=== PATIENT | female | born 1965 | race Two or more races ===

== ENCOUNTER 2024-03-08 14:30 | Inpatient (IN) | payer MEDICARE, MEDICAID ==
[~2024-03-08] VITALS: Ht 157.5 cm; Wt 108.5 kg
[~2024-03-08 14:30] MED LIST: AMLO1TAB22 PO; B-CO-5 PO; CARV12.544 PO; CLON0.1T PO; DICL1GEL59 TOP; FERR1TAB17 PO; GABA-1308 PO; HYDR-4072 PO; ICOS1CAP3 PO; INSU100I61 SC; LIDO1PAD55 TOP; METO5TAB5 PO; PANT40T PO
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
[2024-03-08] MEDS: SODIUM CHLORIDE 0.9% 1,000 ML IV ONE (15:30)
--- NOTE | 2024-03-08 15:56 | DVH ---
XY CHEST TWO VIEWS ROUTINE CLINICAL HISTORY: chf COMPARISON: None TECHNIQUE: Frontal and lateral view of the chest was obtained FINDINGS: Lines and Tubes: None Lungs: No focal consolidation. Left basilar atelectasis. Pleura: No effusion. No pneumothorax. Cardiomediastinal contours: Unremarkable Bones: No acute osseous abnormality. IMPRESSION: 1. Left basilar atelectasis, otherwise, no radiographic evidence of acute cardiopulmonary disease. HS:Y
[2024-03-08 16:31] VITALS: PULSE 80; RESP 20; O2SAT 95
[2024-03-08 16:34] LABS: Basophils # (auto) 0.1 10 ^3/uL (0-0.2); Basophils % (auto) 0.7 % (0.0-2.0); Eosinophils # (auto) 0.4 10 ^3/uL (0-0.8); Eosinophils % (auto) 3.4 % (0.0-7.0); Hemoglobin 11.9 g/dL (12.2-16.2); Lymphocytes % (auto) 18.2 % (10.0-50.0); Mean Corpuscular Volume 94.3 fL (80.0-100.0); Monocytes # (auto) 0.8 10 ^3/uL (0-1.3); Monocytes % (auto) 7.2 % (0.0-12.0); Neutrophils # (auto) 7.6 10 ^3/uL (1.6-8.6); Neutrophils % (auto) 70.5 % (37.0-80.0); Platelet Count (auto) 219 10^3/uL (140-450); Red Blood Cells 3.61 10^6/uL (4.0-5.20); Red Cell Distribution Width 14.4 % (11.8-14.3); White Blood Cell 10.8 10^3/uL (4.4-10.8)
[2024-03-08 16:56] LABS: Alanine Aminotransferase 13 U/L (7-40); Albumin 4.3 g/dL (3.2-4.8); Alkaline Phosphatase 142 U/L (46-116); Anion Gap 11 (5-15); Aspartate Aminotransferase 14 U/L (13-40); BUN/Creatinine Ratio 6.5 (10.0-20.0); Blood Urea Nitrogen 55 mg/dL (9-23); Calcium 9.8 mg/dL (8.7-10.4); Carbon Dioxide 29 mmol/L (20-31); Chloride 98 mmol/L (98-107); Glucose 159 mg/dL (74-106); Magnesium 2.1 mg/dL (1.6-2.6); Potassium 3.6 mmol/L (3.5-5.1); Sodium 138 mmol/L (136-145)
[2024-03-08 16:57] LABS: Bilirubin, Total 0.2 mg/dL (0.2-1.0)
[2024-03-08 16:59] LABS: INR 1.09 (0.9-1.15); Partial Thromboplastin Time 26.5 SEC (24.5-34.5); Prothrombin Time 11.5 sec (9.3-11.8)
[2024-03-08] MEDS: SODIUM CHLORIDE 0.9% 1,000 ML IV SCH (19:00)
[2024-03-08] MEDS ORDERED: DEXTROSE (50%) 50ML SYRG IV PRN (19:00)
[2024-03-08] MEDS ORDERED: ACETAMINOPHEN 325 MG TAB PO PRN (19:00)
[2024-03-08] MEDS ORDERED: cloNIDine HCL 0.1 MG TAB PO PRN (19:00)
[2024-03-08 19:27] VITALS: BP 148/61; PULSE 85; RESP 18; TEMP 98.7; O2SAT 100
--- NOTE | 2024-03-08 20:08 | DVHHP2 ---
History of Present Illness Reason for Visit: Acute respiratory distress History of Present Illness The patient is a 58-year-old female with past medical history of end-stage renal disease on peritoneal dialysis, diabetes mellitus, and thyroid disease who presented to [facility] ED with complaint of shortness of breaths. Patient reports symptoms progressively get worse with nonproductive cough, malaise, fatigue, getting worse that prompted this visit. Patient also reported she experience stomach upset whenever she eats, states will bring dialysis mention from home. Patient was seen and evaluated in the ED, laboratory data shows WBC 10.8, platelets 219, sodium 138, potassium 3.6, BUN 55, creatinine 8.50, glucose 159, BNP 63.99, troponin eight, TSH 1.16, D-dimer 0.69. Chest x-ray revealing left bibasilar atelectasis, otherwise no radiographic evidence of acute cardiopulmonary disease. Please see medication orders section in the computer. On my assessment, patient denied chest pain, no headache, no dizziness, no shortness of breath, no nausea, no vomiting, no fever, no chills. Patient was admitted for further evaluation and medical management. Past Medical History DM, Thyroid, ESRD on peritoneal dialysis Past Surgical History Dialysis access Family History Reviewed, noncontributory to the management of this case. Past Social History The patient lives at home, denies smoking, alcohol or illicit drugs abuse. Review of Systems Constitutional: Yes: Weakness, Malaise, Other (Fatigue); No: Fever, Chills, Sweats Eyes: No: Pain, Vision change, Conjunctivae inflammation, Eyelid inflammation, Other, Redness ENT: No: Ear pain, Ear discharge, Nose pain, Nose discharge, Nose congestion, Mouth pain, Mouth swelling, Throat pain, Throat swelling, Other Respiratory: Cough, Shortness of breath; No: Dry, SOB with excertion, Wheezing, Hemoptysis, Pleuritic Pain, Sputum, Wheezing, Other Cardiovascular: No: Chest Pain, Palpitations, Orthopnea, Paroxysmal Noc. Dyspnea, Edema, Lt Headedness, Other Gastrointestinal: No: Nausea, Vomiting, Abdominal Pain, Diarrhea, Constipation, Melena, Hematochezia, Other Genitourinary: No Dysuria, No Frequency, No Incontinence, No Hematuria, No Retention; Other (Peritoneal dialysis) Musculoskeletal: No: other, neck pain, shoulder pain, arm pain, back pain, hand pain, leg pain, foot pain Skin: No: Rash, Lesions, Jaundice, Bruising, Other Neurological: No: Weakness, Numbness, Incoordination, Change in speech, Confusion, Seizures, Other Allergies: Coded Allergies: NO KNOWN ALLERGIES (Unverified , 03/08/24) Medications Current Medications Medications Dose Ordered Sig/Miguel A Route Start Time Stop Time Status Last Admin Dose Admin Aspirin 81 mg DAILY PO 03/09/24 10:00 Clonidine HCl 0.1 mg Q4HP PRN PO 03/08/24 19:00 Carvedilol 12.5 mg Q12HR PO 03/08/24 22:00 Levothyroxine Sodium 50 mcg QAM@0600 PO 03/09/24 06:00 Albuterol 2.5 mg Q4HPRN PRN NEB 03/08/24 19:00 Diagnostic Test (Pha) 1 strip ACHS 03/08/24 22:00 Insulin Human Regular ACHS SC 03/08/24 22:00 Dextrose 50 ml UD PRN IV 03/08/24 19:00 Sodium Chloride 1,000 ml @ 60 mls/hr [id number] IV 03/08/24 19:00 Acetaminophen/ Hydrocodone Bitart 1 tab Q4HP PRN PO 03/08/24 19:00 Ondansetron HCl 4 mg Q4HP PRN IV 03/08/24 19:00 Docusate Sodium 100 mg BIDPRN PRN PO 03/08/24 19:00 Acetaminophen 650 mg Q6HP PRN PO 03/08/24 19:00 Exam Vital Signs Vital Signs Date Time Temp Pulse Resp B/P (MAP) Pulse Ox O2 Delivery O2 Flow Rate FiO2 03/08/24 19:27 100 Room Air 03/08/24 19:27 98.7 85 18 148/61 0.0 21 98.7 General Appearance: Alert, Oriented X3, Cooperative, No acute distress HEENT: Atraumatic, PERRLA, EOMI, Mucous membr. moist/pink Respiratory: Clear to auscultation, Normal air movement Cardiovascular: Regular rate, Normal S1, Normal S2, No murmurs Abdominal: Normal bowel sounds, Soft, No tenderness, No hepatospenomegaly, No masses Extremities: No clubbing, No cyanosis, No edema, Normal pulses, No tenderness/swelling Skin: No rashes, No breakdown, No significant lesion Neuro: Normal speech, Normal tone, Sensation intact, Cranial nerves 3-12 NL, Reflexes 2+ Psych/Mental Status: Mental status NL, Mood NL Labs/Xrays Labs Test 03/08/24 16:10 Range/Units White Blood Count 10.8 4.4-10.8 10^3/uL Red Blood Count 3.61 L 4.0-5.20 10^6/uL Hemoglobin 11.9 L 12.2-16.2 g/dL Hematocrit 34.0 L 36.0-46.0 % Mean Corpuscular Volume 94.3 80.0-100.0 fL Mean Corpuscular Hemoglobin 33.0 H 28.0-32.0 pg Mean Corpuscular Hemoglobin Concent 35.0 32.0-36.0 g/dL Red Cell Distribution Width 14.4 H 11.8-14.3 % Platelet Count 219 140-450 10^3/uL Mean Platelet Volume 8.7 6.9-10.8 fL Neutrophils (%) (Auto) 70.5 37.0-80.0 % Lymphocytes (%) (Auto) 18.2 10.0-50.0 % Monocytes (%) (Auto) 7.2 0.0-12.0 % Eosinophils (%) (Auto) 3.4 0.0-7.0 % Basophils (%) (Auto) 0.7 0.0-2.0 % Neutrophils # (Auto) 7.6 1.6-8.6 10 ^3/uL Lymphocytes # (Auto) 2.0 0.4-5.4 10 ^3/uL Monocytes # (Auto) 0.8 0-1.3 10 ^3/uL Eosinophils # (Auto) 0.4 0-0.8 10 ^3/uL Basophils # (Auto) 0.1 0-0.2 10 ^3/uL Nucleated Red Blood Cells 0.0 % Prothrombin Time 11.5 9.3-11.8 sec Prothrombin Time INR 1.09 0.9-1.15 Activated Partial Thromboplast Time 26.5 24.5-34.5 SEC D-Dimer, Quantitative 0.69 H 0.0-0.49 mg/L FEU Sodium Level 138 136-145 mmol/L Potassium Level 3.6 3.5-5.1 mmol/L Chloride Level 98 98-107 mmol/L Carbon Dioxide Level 29 20-31 mmol/L Anion Gap 11 5-15 Blood Urea Nitrogen 55 H 9-23 mg/dL Creatinine 8.50 H 0.550-1.02 mg/dL Glomerular Filtration Rate Calc 5 >90 mL/min BUN/Creatinine Ratio 6.5 L 10.0-20.0 Serum Glucose 159 H 74-106 mg/dL Calcium Level 9.8 8.7-10.4 mg/dL Magnesium Level 2.1 1.6-2.6 mg/dL Total Bilirubin 0.2 0.2-1.0 mg/dL Aspartate Amino Transferase (AST) 14 13-40 U/L Alanine Aminotransferase (ALT) 13 7-40 U/L Alkaline Phosphatase 142 H 46-116 U/L Troponin I High Sensitivity 8 </=34 ng/L B-Type Natriuretic Peptide 63.99 0-100 pg/mL Total Protein 8.0 5.7-8.2 g/dL Albumin 4.3 3.2-4.8 g/dL Thyroid Stimulating Hormone (TSH) 1.16 0.55-4.78 uIU/mL PATIENT: ALEX YOU ACCT: [id number] UNIT: [id number] : 1965 LOC: ER ROOM / BED: / AGE / SEX: 58 / F ADM STATUS: REG ER SERVICE [id number] ORDERING PHYSICIAN: MARAH FORRESTER MD PROCEDURE(s): CXR2 - CHEST TWO VIEWS ROUTINE REASON: chf ORDER NUMBER(s): [id number], ACCESSION NUMBER(s): [id number] XY CHEST TWO VIEWS ROUTINE CLINICAL HISTORY: chf COMPARISON: None TECHNIQUE: Frontal and lateral view of the chest was obtained FINDINGS: Lines and Tubes: None Lungs: No focal consolidation. Left basilar atelectasis. Pleura: No effusion. No pneumothorax. Cardiomediastinal contours: Unremarkable Bones: No acute osseous abnormality. IMPRESSION: 1. Left basilar atelectasis, otherwise, no radiographic evidence of acute cardiopulmonary disease. Assessment/Plan Assessment/Plan Acute respiratory distress Elevated D-dimer Generalized weakness Diabetes mellitus with hyperglycemia End-stage renal disease on peritoneal dialysis Plan 1. Admit to telemetry unit 2. Breathing treatment 3. Pain control management 4. Management of fluids and electrolytes 5. Consultation for Nephrology 6. Diagnostic tests chest x-ray 7. DVT prophylaxis-on aspirin 8. Repeat labs CBC, CMP in a.m. 9. Continue with current medical management 10. Treatment plan discussed with patient and RN. Patient verbalized understanding. Plan discussed with: Patient, Other (RN) My Orders Orders - SUJEY TREJO DNP Procedure Category Date Status Time Consistent DIET 03/09/24 Transmitted Carb(Ccho)Diabetes Breakfast Aspirin Tablet PHA 03/09/24 In Process 10:00 Clonidine Hcl Tablet PHA 03/08/24 In Process (Catapres Tablet) 19:00 Carvedilol Tablet PHA 03/08/24 In Process (Coreg Tablet) 22:00 Levothyroxine Tablet PHA 03/09/24 In Process (Synthroid Tablet) 06:00 Nm Vq Scan NM 03/08/24 Logged 19:00 Albuterol Medneb PHA 03/08/24 In Process (Ventolin Medneb) 19:00 Glucose Blood PHA 03/08/24 In Process (Accu-Chek Comfort 22:00 Insulin R (Human) PHA 03/08/24 In Process (Insulin R) 22:00 Dextrose 50% Syringe PHA 03/08/24 In Process 19:00 Allergies JEUSS 03/08/24 In Process 19:00 Code Status CODE 03/08/24 Transmitted 19:00 Sodium Chloride 0.9% PHA 03/08/24 In Process 19:00 Oxygen Per Hour RT 03/08/24 Transmitted 19:00 Hydrocodone-Acet PHA 03/08/24 In Process 5/325mg Tab ([place] 19:00 Ondansetron Hcl PHA 03/08/24 In Process (Zofran) 19:00 Docusate Sodium PHA 03/08/24 In Process Capsule (Colace 19:00 Complete Blood Count LAB 03/09/24 Verified 04:00 Comprehensive LAB 03/09/24 Verified Metabolic Panel 04:00 Condition: Serious JESUS 03/08/24 In Process 19:00 Acetaminophen Tablet PHA 03/08/24 In Process (Tylenol Tablet) 19:00 Bedrest With Bathroom JESUS 03/08/24 In Process Privileg 19:00 Sequential JESUS 03/08/24 In Process Compression Device *[facility]. [facility] CONS 03/08/24 Transmitted -[place] 20:06 Admit ADMIT 03/08/24 Transmitted 20:06 Nitroglycerin PHA 03/08/24 Transmitted Sublingual (Ntrostat 20:15 Morphine Sulfate PHA 03/08/24 Verified Injection 20:15 Notify Of Changes [facility] 03/08/24 Verified From Base 20:06 Canal Superintendent For [facility] 03/08/24 Verified 24 Hours 20:06 Emergency Dysrhythmia [facility] 03/08/24 Verified Protocol 20:06 Rhythm Strips Once [facility] 03/08/24 Verified Every Shift 20:06 Oxygen By Nasal RT 03/08/24 Verified Cannula 20:06 Famotidine Injection [facility] 03/08/24 Verified (Pepcid Injection) 22:00 Problem List: (1) Acute respiratory distress (2) Elevated d-dimer (3) Generalized weakness (4) Diabetes mellitus with hyperglycemia (5) End-stage renal disease on peritoneal dialysis Date of Service: Mar 08, 2024 Billing Provider: SUJEY TREJO DNP Common Visit Codes: [id number] INP/OBS CARE (HIGH) SUJEY TREJO DNP Mar 08, 2024 20:08
[2024-03-08] MEDS ORDERED: MORPHINE SULFATE INJ 2 MG/ml SYRG IV PRN (20:15)
[2024-03-08] MEDS ORDERED: NITROGLYCERIN 0.4 MG SL TAB SL PRN (20:15)
[2024-03-08] MEDS: CARVEDILOL 12.5 MG TAB PO SCH (22:10)
[2024-03-08] MEDS: InsuLIN REG 1unit/0.01ml Soln (100units/ml) SC SCH (22:11)
[2024-03-08] MEDS: ACCU-CHEK COMFORT CURVE STRIP VI SCH (22:12)
[2024-03-08] MEDS: FAMOTIDINE (10MG/ML) 2ML VL IV SCH (22:25)
[2024-03-08 23:46] VITALS: BP 114/61; PULSE 75; RESP 20; TEMP 97.8; O2SAT 96
[2024-03-09] VITALS (13 sets, daily range): BP systolic 135–161; BP diastolic 49–66; PULSE 73–87; RESP 16–20; TEMP 97.3–98.1; O2SAT 91–100
[2024-03-09] MEDS ORDERED: CLOP75TA70 PO (02:05)
[2024-03-09] MEDS ORDERED: PANT1INJ3 IV (02:05)
[2024-03-09] MEDS ORDERED: LEVO25TA6 PO (02:05)
[2024-03-09] MEDS ORDERED: QUET400T13 PO (02:05)
[2024-03-09] MEDS ORDERED: FURO40TA4 PO (02:05)
[2024-03-09] MEDS ORDERED: PANT40TA2 PO (02:05)
[2024-03-09] MEDS ORDERED: DOCU-111 PO (02:05)
[2024-03-09] MEDS ORDERED: ATOR20TA50 PO (02:05)
[2024-03-09] MEDS ORDERED: NIFE90TA75 PO (02:05)
[2024-03-09] MEDS ORDERED: INSUINJ37 SC (02:05)
[2024-03-09] MEDS ORDERED: INSU100I28 IJ (02:05)
[2024-03-09] MEDS ORDERED: CALC0.25 PO (02:05)
[2024-03-09] MEDS ORDERED: LISI20TA56 PO (02:05)
[2024-03-09] MEDS: HYDROcodone-ACET 5/325MG TAB PO PRN (04:00)
[2024-03-09] MEDS: LEVOTHYROXINE SODIUM 50 MCG TAB PO SCH (05:13)
[2024-03-09 07:12] LABS: Basophils # (auto) 0 10 ^3/uL (0-0.2); Basophils % (auto) 0.3 % (0.0-2.0); Eosinophils # (auto) 0.4 10 ^3/uL (0-0.8); Eosinophils % (auto) 3.5 % (0.0-7.0); Hemoglobin 11.1 g/dL (12.2-16.2); Lymphocytes # (auto) 1.9 10 ^3/uL (0.4-5.4); Mean Corpuscular Hemoglobin 31.2 pg (28.0-32.0); Mean Corpuscular Hgb Conc. 32.7 g/dL (32.0-36.0); Mean Corpuscular Volume 95.3 fL (80.0-100.0); Monocytes # (auto) 0.9 10 ^3/uL (0-1.3); Monocytes % (auto) 7.6 % (0.0-12.0); Neutrophils # (auto) 8.1 10 ^3/uL (1.6-8.6); Neutrophils % (auto) 71.6 % (37.0-80.0); Platelet Count (auto) 218 10^3/uL (140-450); Red Blood Cells 3.57 10^6/uL (4.0-5.20); Red Cell Distribution Width 14.8 % (11.8-14.3); White Blood Cell 11.3 10^3/uL (4.4-10.8)
[2024-03-09 07:29] LABS: Alanine Aminotransferase 11 U/L (7-40); Alkaline Phosphatase 142 U/L (46-116); Anion Gap 15 (5-15); Aspartate Aminotransferase 13 U/L (13-40); BUN/Creatinine Ratio 6.6 (10.0-20.0); Blood Urea Nitrogen 53 mg/dL (9-23); Calcium 9.6 mg/dL (8.7-10.4); Carbon Dioxide 25 mmol/L (20-31); Chloride 98 mmol/L (98-107); Glucose 305 mg/dL (74-106); Potassium 3.5 mmol/L (3.5-5.1); Sodium 138 mmol/L (136-145)
[2024-03-09 07:30] LABS: Bilirubin, Total 0.2 mg/dL (0.2-1.0); Total Protein 7.5 g/dL (5.7-8.2)
[2024-03-09] MEDS: ONDANSETRON HCL 4 MG/2 ML VIAL IV PRN (07:34)
[2024-03-09] MEDS: ASPirin 81 mg TAB PO SCH (09:22)
[2024-03-09] MEDS: ALBUTEROL SULF 2.5 MG/0.5ML(0.5%) NEB SOLN NEB PRN (12:16)
[2024-03-09 12:32] LABS: Urine Bacteria FEW /hpf (None Seen); Urine Blood Negative /uL (Negative); Urine Clarity Turbid (Clear); Urine Color Yellow (Yellow); Urine Hyaline Cast FEW /lpf (0 - 2); Urine Protein, UAD 1+ (Negative); Urine Specific Gravity 1.019 (1.001-1.035); Urine Urobilinogen Normal (Negative); Urine WBC 4 /hpf (0 - 5)
--- NOTE | 2024-03-09 13:18 | ECG ---
[facility] Test Date: 2024-03-08 Test Time: 17:17:26 Pat Name: ALEX YOU Department: ED Room: 0282T Gender: F Bookkeepers Supervisor: ALTHEA : 1965 Requested By: MARAH FORRESTER Order Number: [id number] Reading MD: Serafin Ghosh Measurements Intervals [place] Rate: 84 P: 54 HI: 185 QRS: -20 QRSD: 109 T: 27 QT: 388 QTc: 459 Interpretive Statements Sinus rhythm Borderline left axis deviation Low voltage, precordial leads Abnormal R-wave progression, late transition Electronically Signed On 03-11-2024 11:17:43 PST by Serafin Ghosh Please click the below link to view image of tracing.
--- NOTE | 2024-03-09 14:13 | DVH ---
EXAM: US BILAT LOWER DVT Clinical History: rule out DVT Comparison: None Technique: Duplex Doppler evaluation of the deep venous systems of both lower extremities from the common femora l veins to the popliteal veins including color Doppler and spectral/pulsed waveform analysis was perf ormed. Findings: No visible intraluminal venous thrombus. No evidence of incompressibility or abnormal color or spectr al Doppler flow visualized in the deep bilateral lower extremity veins. Proximal greater saphenous ve ins are grossly unremarkable. Impression: 1. No sonographic evidence of deep venous thrombosis throughout the bilateral lower extremities from the popliteal veins to the common femoral veins.
[2024-03-09 14:25] LABS: Erythrocyte Sedimentation Rate 96 mm/hr (0-20)
[2024-03-09 15:05] LABS: Rapid Influenza A Negative (Negative); Rapid Influenza B Negative (Negative)
[2024-03-09 15:06] LABS: COVID19 ANTIGEN SOFIA FIA NEGATIVE (NEGATIVE)
--- NOTE | 2024-03-09 16:01 | DVHPN2 ---
Subjective Patient continues to report having generalized weakness. Reviewed: Care Plan, H&P, Labs, Medications Changes from previous H/P or p: No Changes General: Per HPI Eyes: No Pain, No Vision change, No Conjunctivae inflammation, No Eyelid inflammation, No Other, No Redness ENT: No Ear pain, No Ear discharge, No Nose pain, No Nose discharge, No Nose congestion, No Mouth pain, No Mouth swelling, No Throat pain, No Throat swelling, No Other Cardiovascular: No Chest Pain, No Palpitations, No Orthopnea, No Paroxysmal Noc. Dyspnea, No Edema, No Lt Headedness, No Other Respiratory: Cough; No Dry; Shortness of breath; No SOB with excertion, No Wheezing, No Hemoptysis, No Pleuritic Pain, No Sputum, No Other Gastrointestinal: No Nausea, No Vomiting, No Abdominal Pain, No Diarrhea, No Constipation, No Melena, No Hematochezia, No Other Genitourinary: No Dysuria, No Frequency, No Incontinence, No Hematuria, No Retention; Other (Peritoneal dialysis) Musculoskeletal: No other, No neck pain, No shoulder pain, No arm pain, No back pain, No hand pain, No leg pain, No foot pain Skin: No Rash, No Lesions, No Jaundice, No Bruising, No Other Objective Vitals Vital Signs Date Time Temp Pulse Resp B/P (MAP) Pulse Ox O2 Delivery O2 Flow Rate FiO2 03/09/24 13:00 97.3 81 20 152/66 (94) 97 97.3 03/09/24 12:17 Room Air* 0 21 Intake/Output Intake and Output 03/09/24 07:00 Intake Total 0 ml Balance 0 ml Intake Oral 0 ml # Voids 1 General Appearance: Alert, Oriented X3, Cooperative, No acute distress HEENT: Atraumatic, PERRLA Lungs: Clear to auscultation, Normal air movement Cardiovascular: Normal S1, Normal S2 Abdomen: Normal bowel sounds, Soft Musculoskeletal: Normal sensory function, Normal motor function Extremities: No clubbing, No cyanosis Neuro: Normal gait, Normal speech Psych/Mental Status: Mental status NL, Mood NL Medications Current Medications Medications Dose Ordered Sig/Miguel A Route Start Time Stop Time Status Last Admin Dose Admin Aspirin 81 mg DAILY PO 03/09/24 10:00 03/09/24 09:22 81 MG Clonidine HCl 0.1 mg Q4HP PRN PO 03/08/24 19:00 Carvedilol 12.5 mg Q12HR PO 03/08/24 22:00 03/09/24 09:22 12.5 MG Levothyroxine Sodium 50 mcg QAM@0600 PO 03/09/24 06:00 03/09/24 05:13 50 MCG Albuterol 2.5 mg Q4HPRN PRN NEB 03/08/24 19:00 03/09/24 12:16 2.5 MG Diagnostic Test (Pha) 1 strip ACHS 03/08/24 22:00 03/09/24 10:59 1 STRIP Insulin Human Regular ACHS SC 03/08/24 22:00 03/09/24 11:57 10 UNITS Dextrose 50 ml UD PRN IV 03/08/24 19:00 Sodium Chloride 1,000 ml @ 60 mls/hr [id number] IV 03/08/24 19:00 Acetaminophen/ Hydrocodone Bitart 1 tab Q4HP PRN PO 03/08/24 19:00 03/09/24 11:25 1 TAB Ondansetron HCl 4 mg Q4HP PRN IV 03/08/24 19:00 03/09/24 13:03 4 MG Docusate Sodium 100 mg BIDPRN PRN PO 03/08/24 19:00 Acetaminophen 650 mg Q6HP PRN PO 03/08/24 19:00 Nitroglycerin 0.4 mg Q5MINP PRN SL 03/08/24 20:15 Morphine Sulfate 2 mg Q30M PRN IV 03/08/24 20:15 Famotidine 20 mg Q48H IV 03/08/24 22:00 03/08/24 22:25 20 MG Piperacillin Sod/ Tazobactam Sod 50 ml @ 12.5 mls/hr Q12HR IV 03/09/24 22:00 Laboratory Results Laboratory Tests 03/09/24 05:57 Chemistry Test 03/08/24 16:10 03/09/24 05:57 Albumin 4.3 g/dL (3.2-4.8) 4.0 g/dL (3.2-4.8) Calcium Level 9.8 mg/dL (8.7-10.4) 9.6 mg/dL (8.7-10.4) Magnesium Level 2.1 mg/dL (1.6-2.6) Total Protein 8.0 g/dL (5.7-8.2) 7.5 g/dL (5.7-8.2) Coagulation Test 03/08/24 16:10 Prothrombin Time 11.5 sec (9.3-11.8) Prothrombin Time INR 1.09 (0.9-1.15) Activated Partial Thromboplast Time 26.5 SEC (24.5-34.5) D-Dimer, Quantitative 0.69 mg/L FEU (0.0-0.49) H Cardiac Markers Test 03/08/24 16:10 B-Type Natriuretic Peptide 63.99 pg/mL (0-100) LFT Test 03/08/24 16:10 03/09/24 05:57 Alanine Aminotransferase (ALT) 13 U/L (7-40) 11 U/L (7-40) Alkaline Phosphatase 142 U/L (46-116) H 142 U/L (46-116) H Aspartate Amino Transferase (AST) 14 U/L (13-40) 13 U/L (13-40) Total Bilirubin 0.2 mg/dL (0.2-1.0) 0.2 mg/dL (0.2-1.0) HgA1c, TSH Test 03/08/24 16:10 03/09/24 05:57 Thyroid Stimulating Hormone (TSH) 1.16 uIU/mL (0.55-4.78) Hemoglobin A1c 8.3 % A1C (<5.7) H Urinalysis Test 03/08/24 15:22 Urine Color Yellow (Yellow) Urine Clarity Turbid (Clear) H Urine pH 5.0 (5.0-9.0) Urine Specific [place] 1.019 (1.001-1.035) Urine Protein 1+ (Negative) H Urine Ketones Negative (Negative) Urine Blood Negative /uL (Negative) Urine Nitrite Negative (Negative) Urine Bilirubin Negative (Negative) Urine Urobilinogen Normal mg/dL (Negative) Urine Leukocyte Esterase Trace /uL (Negative) Urine RBC 1 /hpf (0 - 4) Urine WBC 4 /hpf (0 - 5) Urine Squamous Epithelial Cells Few /hpf (<5) Urine Bacteria Few /hpf (None Seen) H Urine Hyaline Casts Few /lpf (0 - 2) Urine Glucose 1+ mg/dL (Normal) H Labs and/or images reviewed: Labs reviewed by me, Image(s) reviewed by me Assessment/Plan Assessment/Plan Impression: -leukocytosis, rule out sepsis -end-stage renal disease with peritoneal dialysis -primary hypertension -anemia of chronic disease -obesity -rule out PE/DVT -rule out sepsis Plan: -start prophylactic antibiotic therapy with Zosyn -nephrology consultation for PD management -blood and urine cultures -check ESR, CRP -continue antihypertensives -V/Q stand pending. Consider a CT scan of the chest -DVT study: Negative -repeat labs in a.m. Total time spent with patient discussing and formulating plan of care: 35 minutes. This medical document was created using an electronic medical record system with [employer] dictation system. Although this document has been carefully reviewed, there may still be some phonetic and typographical errors. These areas are purely typographical due to imperfections of the software programs, and do not reflect any compromise in the patient's medical care. Plan discussed with: Patient, Other (RN) My Orders Orders - RIC BULL NP Procedure Category Date Status Time Bilat Lower Dvt US 03/09/24 Resulted 12:39 Blood Culture HALIMA 03/09/24 In Process 12:39 Piperacillin-Tazob PHA 03/09/24 In Process 2.25gm (Zosyn 2.25gm) 22:00 Date of Service: Mar 09, 2024 Billing Provider: RIC BULL NP Common Visit Codes: [id number] INP/OBS CARE(HIGH) RIC BULL NP Mar 09, 2024 16:01
--- NOTE | 2024-03-09 16:22 | DVHINCON2 ---
Date of service: Mar 09, 2024 Referring Physician Hamzah Aleman Reason for Consultation Peritoneal dialysis History of Present Illness 58 Y/O F with history of ESRD on PD, DM, HTN, and Anemia of CKD presented with chief complaint of SOB, associated with non-productive cough, and fatigue. CXR shows Lt atelectasis. no consolidation. She is on room air. Labbs show K: 3.5 mmol/l, and Hb: 11.1 g/dl. Nephrology consulted for maintenance of peritoneal dialysis. Past Medical History ESRD DM HTN Anemia Past Surgical History PD catheter insertion Allergies: Coded Allergies: NO KNOWN ALLERGIES (Unverified , 03/08/24) Home Meds Reported Medications Insulin Aspart (Novolog) 100 Unit/Ml Inj, 100 UNIT IJ sliding scale 03/09/24 Insulin Glargine (Lantus Solostar) 100 Unit/Ml Inj, 30 UNIT SC ACHS 03/09/24 Nifedipine (Nifedipine Er) 90 Mg Tab, 90 MG PO DAILY 03/09/24 Furosemide (Furosemide) 40 Mg Tab, 80 MG PO BIDD 03/09/24 Carvedilol (Carvedilol) 12.5 Mg Tab, 12.5 MG PO DAILY 03/09/24 Pantoprazole Sodium Sesquihydr (Protonix) 40 Mg Tab, 40 MG PO DAILY, % 03/09/24 Pantoprazole Sodium (PANTOPRAZOLE SODIUM) 40 Mg Inj, 40 MG IV, INJ 03/09/24 Levothyroxine Sodium (Levothyroxine Sodium) 25 Mcg Tab, 75 MCG PO QAM, % 03/09/24 Hydrocodone-Acetaminophen (Hydrocodone/Acetaminophen 10-325 mg) 1 Tab Tab, 1 TAB PO BID, % 03/09/24 Quetiapine Fumerate (QUETIAPINE FUMARATE) 400 Mg Tab, 400 MG PO at bedtime, MG 03/09/24 B-Complex W/ C & Folic Acid (Simran-Paty) Tab, 1 BC DAILY, TAB 03/09/24 Lisinopril (Lisinopril) 20 Mg Tab, 20 MG PO DAILY, MG 03/09/24 Ferric Citrate (Auryxia) 210 Mg Tab, 210 MG PO 2 tabs TID w/ meals, TAB 03/09/24 Clopidogrel Bisulfate (CLOPIDOGREL) 75 Mg Tab, 75 MG PO DAILY, MG 03/09/24 Atorvastatin Calcium (ATORVASTATIN CALCIUM) 20 Mg Tab, 20 MG PO DAILY, TAB 03/09/24 Calcitriol (Calcitriol) 0.25 Mcg Cap, 0.25 MCG PO DAILY, MCG 03/09/24 Metolazone (Metolazone) 5 Mg Tab, 5 MG PO 1 tab 3x a week, TAB 03/09/24 Docusate Sodium (Sb Docusate Sodium) 100 Mg Cap, 100 MG PO BID, CAP 03/09/24 Current Medications Current Medications Medications (Trade) Dose Ordered Sig/Miguel A Route PRN Reason Start Time Stop Time Status Last Admin Aspirin 81 mg DAILY PO 03/09/24 10:00 03/09/24 09:22 Clonidine HCl (Catapres Tablet) 0.1 mg Q4HP PRN PO SBP>150 03/08/24 19:00 Carvedilol (Coreg Tablet) 12.5 mg Q12HR PO 03/08/24 22:00 03/09/24 09:22 Levothyroxine Sodium (Synthroid Tablet) 50 mcg QAM@0600 PO 03/09/24 06:00 03/09/24 05:13 Albuterol (Ventolin Medneb) 2.5 mg Q4HPRN PRN NEB SHORTNESS OF BREATH 03/08/24 19:00 03/09/24 12:16 Diagnostic Test (Pha) (Accu-Chek Comfort Curve T) 1 strip ACHS 03/08/24 22:00 03/09/24 10:59 Insulin Human Regular (InsuLIN R) ACHS SC 03/08/24 22:00 03/09/24 11:57 Dextrose 50 ml UD PRN IV Blood Sugar LESS THAN 60 03/08/24 19:00 Sodium Chloride 1,000 ml @ 60 mls/hr [id number] IV 03/08/24 19:00 Acetaminophen/ Hydrocodone Bitart ([place] 5/325MG Tab) 1 tab Q4HP PRN PO MODERATE PAIN (4-6 PAIN SCALE) 03/08/24 19:00 03/09/24 11:25 Ondansetron HCl (Zofran) 4 mg Q4HP PRN IV NAUSEA / VOMITING 03/08/24 19:00 03/09/24 13:03 Docusate Sodium (Colace Capsule) 100 mg BIDPRN PRN PO FOR CONSTIPATION 03/08/24 19:00 Acetaminophen (Tylenol Tablet) 650 mg Q6HP PRN PO PAIN SCALE 1-3 OR TEMP>100.4 03/08/24 19:00 Nitroglycerin (Ntrostat Sublingual) 0.4 mg Q5MINP PRN SL FOR CHEST PAIN 03/08/24 20:15 Morphine Sulfate 2 mg Q30M PRN IV FOR CHEST PAIN 03/08/24 20:15 Famotidine (Pepcid Injection) 20 mg Q48H IV 03/08/24 22:00 03/08/24 22:25 Piperacillin Sod/ Tazobactam Sod 50 ml @ 12.5 mls/hr Q12HR IV 03/09/24 22:00 Family History: Colon cancer G8 FATHER Diabetes mellitus G8 MOTHER FH: stomach cancer Hypertension G8 MOTHER Review of Systems As per HPI, all other systems were reviewed and are negative. H&P Exam Vital Signs/I&O Vital Sign Date Time Temp Pulse Resp B/P (MAP) Pulse Ox O2 Delivery O2 Flow Rate FiO2 03/09/24 13:00 97.3 81 20 152/66 (94) 97 97.3 03/09/24 12:17 Room Air* 0 21 Intake and Output 03/08/24 03/09/24 19:00 07:00 Intake Total 0 ml Balance 0 ml Intake Oral 0 ml # Voids 1 Physical Exam Gen: NAD HEENT: NC, AT Lungs: decreased breath sound lt lung base Cardiology: RRR, no murmur Abd: + PD catheter, exit site clear Ext: no edema Labs/Diagnostic Data Labs/Diagnostic Data Laboratory Tests Test 03/09/24 14:10 03/09/24 13:17 03/09/24 05:57 03/09/24 05:15 Range/Units Influenza Type A Antigen Negative Negative Influenza Type B Antigen Negative Negative SARS-CoV-2 Antigen (Rapid) Negative NEGATIVE Erythrocyte Sedimentation Rate 96 H 0-20 mm/hr White Blood Count 11.3 H 4.4-10.8 10^3/uL Red Blood Count 3.57 L 4.0-5.20 10^6/uL Hemoglobin 11.1 L 12.2-16.2 g/dL Hematocrit 34.0 L 36.0-46.0 % Mean Corpuscular Volume 95.3 80.0-100.0 fL Mean Corpuscular Hemoglobin 31.2 28.0-32.0 pg Mean Corpuscular Hemoglobin Concent 32.7 32.0-36.0 g/dL Red Cell Distribution Width 14.8 H 11.8-14.3 % Platelet Count 218 140-450 10^3/uL Mean Platelet Volume 8.9 6.9-10.8 fL Neutrophils (%) (Auto) 71.6 37.0-80.0 % Lymphocytes (%) (Auto) 17.0 10.0-50.0 % Monocytes (%) (Auto) 7.6 0.0-12.0 % Eosinophils (%) (Auto) 3.5 0.0-7.0 % Basophils (%) (Auto) 0.3 0.0-2.0 % Neutrophils # (Auto) 8.1 1.6-8.6 10 ^3/uL Lymphocytes # (Auto) 1.9 0.4-5.4 10 ^3/uL Monocytes # (Auto) 0.9 0-1.3 10 ^3/uL Eosinophils # (Auto) 0.4 0-0.8 10 ^3/uL Basophils # (Auto) 0 0-0.2 10 ^3/uL Nucleated Red Blood Cells 0.0 % Sodium Level 138 136-145 mmol/L Potassium Level 3.5 3.5-5.1 mmol/L Chloride Level 98 98-107 mmol/L Carbon Dioxide Level 25 20-31 mmol/L Anion Gap 15 5-15 Blood Urea Nitrogen 53 H 9-23 mg/dL Creatinine 8.03 H 0.550-1.02 mg/dL Glomerular Filtration Rate Calc 5 >90 mL/min BUN/Creatinine Ratio 6.6 L 10.0-20.0 Serum Glucose 305 H 74-106 mg/dL Hemoglobin A1c 8.3 H <5.7 % A1C Calcium Level 9.6 8.7-10.4 mg/dL Total Bilirubin 0.2 0.2-1.0 mg/dL Aspartate Amino Transferase (AST) 13 13-40 U/L Alanine Aminotransferase (ALT) 11 7-40 U/L Alkaline Phosphatase 142 H 46-116 U/L C-Reactive Protein High Sensitivity 2.75 H <1.0 mg/dL Total Protein 7.5 5.7-8.2 g/dL Albumin 4.0 3.2-4.8 g/dL POC Glucose 292 H 70-106 mg/dl Test 11/4/24 21:39 03/08/24 16:10 03/08/24 15:22 Range/Units POC Glucose 212 H 70-106 mg/dl White Blood Count 10.8 4.4-10.8 10^3/uL Red Blood Count 3.61 L 4.0-5.20 10^6/uL Hemoglobin 11.9 L 12.2-16.2 g/dL Hematocrit 34.0 L 36.0-46.0 % Mean Corpuscular Volume 94.3 80.0-100.0 fL Mean Corpuscular Hemoglobin 33.0 H 28.0-32.0 pg Mean Corpuscular Hemoglobin Concent 35.0 32.0-36.0 g/dL Red Cell Distribution Width 14.4 H 11.8-14.3 % Platelet Count 219 140-450 10^3/uL Mean Platelet Volume 8.7 6.9-10.8 fL Neutrophils (%) (Auto) 70.5 37.0-80.0 % Lymphocytes (%) (Auto) 18.2 10.0-50.0 % Monocytes (%) (Auto) 7.2 0.0-12.0 % Eosinophils (%) (Auto) 3.4 0.0-7.0 % Basophils (%) (Auto) 0.7 0.0-2.0 % Neutrophils # (Auto) 7.6 1.6-8.6 10 ^3/uL Lymphocytes # (Auto) 2.0 0.4-5.4 10 ^3/uL Monocytes # (Auto) 0.8 0-1.3 10 ^3/uL Eosinophils # (Auto) 0.4 0-0.8 10 ^3/uL Basophils # (Auto) 0.1 0-0.2 10 ^3/uL Nucleated Red Blood Cells 0.0 % Prothrombin Time 11.5 9.3-11.8 sec Prothrombin Time INR 1.09 0.9-1.15 Activated Partial Thromboplast Time 26.5 24.5-34.5 SEC D-Dimer, Quantitative 0.69 H 0.0-0.49 mg/L FEU Sodium Level 138 136-145 mmol/L Potassium Level 3.6 3.5-5.1 mmol/L Chloride Level 98 98-107 mmol/L Carbon Dioxide Level 29 20-31 mmol/L Anion Gap 11 5-15 Blood Urea Nitrogen 55 H 9-23 mg/dL Creatinine 8.50 H 0.550-1.02 mg/dL Glomerular Filtration Rate Calc 5 >90 mL/min BUN/Creatinine Ratio 6.5 L 10.0-20.0 Serum Glucose 159 H 74-106 mg/dL Calcium Level 9.8 8.7-10.4 mg/dL Magnesium Level 2.1 1.6-2.6 mg/dL Total Bilirubin 0.2 0.2-1.0 mg/dL Aspartate Amino Transferase (AST) 14 13-40 U/L Alanine Aminotransferase (ALT) 13 7-40 U/L Alkaline Phosphatase 142 H 46-116 U/L Troponin I High Sensitivity 8 </=34 ng/L B-Type Natriuretic Peptide 63.99 0-100 pg/mL Total Protein 8.0 5.7-8.2 g/dL Albumin 4.3 3.2-4.8 g/dL Thyroid Stimulating Hormone (TSH) 1.16 0.55-4.78 uIU/mL Urine Color Yellow Yellow Urine Clarity Turbid H Clear Urine pH 5.0 5.0-9.0 Urine Specific [place] 1.019 1.001-1.035 Urine Protein 1+ H Negative Urine Ketones Negative Negative Urine Blood Negative Negative /uL Urine Nitrite Negative Negative Urine Bilirubin Negative Negative Urine Urobilinogen Normal Negative mg/dL Urine Leukocyte Esterase Trace Negative /uL Urine RBC 1 0 - 4 /hpf Urine WBC 4 0 - 5 /hpf Urine Squamous Epithelial Cells Few <5 /hpf Urine Bacteria Few H None Seen /hpf Urine Hyaline Casts Few 0 - 2 /lpf Urine Glucose 1+ H Normal mg/dL Assessment Assessment: ESRD on PD Atelectasis DM HTN Anemia of CKD Plan: Patient brought in her cycler, she is doing her on dialysis per her prescription. Good UF Hb within desired range on empirical IV antibiotics Coreg 12.5 mg PO BID Plan discussed with: Patient KELIN BARROSO MD Mar 09, 2024 16:22
[2024-03-09] MEDS: DOCUSATE SOD 100 MG CAP PO PRN (19:35)
[2024-03-09] MEDS: PIPERACILLIN-TAZOB 2.25GM 50 ML IV SCH (21:33)
[2024-03-09] MEDS: QUEtiapine FUMARATE 100 MG TAB PO ONE (21:36)
[2024-03-10] VITALS (17 sets, daily range): BP systolic 114–127; BP diastolic 43–62; PULSE 70–107; RESP 14–20; TEMP 97.1–98.7; O2SAT 92–100
--- NOTE | 2024-03-10 06:32 | DVHPN2 ---
Progress Note - Dictate Date Seen: Mar 10, 2024 Medical Necessity Reason Pt with a Central, PICC or Fol: No Subjective no new symptoms vital signs Vital Sign Date Time Temp Pulse Resp B/P (MAP) Pulse Ox O2 Delivery O2 Flow Rate FiO2 03/10/24 05:00 98.4 80 20 118/43 (68) 95 98.4 03/09/24 20:00 Room Air* 0 21 Total Intake and Output 03/09/24 03/09/24 03/10/24 15:00 23:00 07:00 Intake Total 600 ml 440 ml Balance 600 ml 440 ml medications Current Medications Medications Dose Ordered Sig/Miguel A Route Start Time Stop Time Status Last Admin Dose Admin Aspirin 81 mg DAILY PO 03/09/24 10:00 03/09/24 09:22 81 MG Clonidine HCl 0.1 mg Q4HP PRN PO 03/08/24 19:00 Carvedilol 12.5 mg Q12HR PO 03/08/24 22:00 03/09/24 21:34 12.5 MG Levothyroxine Sodium 50 mcg QAM@0600 PO 03/09/24 06:00 03/09/24 05:13 50 MCG Albuterol 2.5 mg Q4HPRN PRN NEB 03/08/24 19:00 03/09/24 19:33 2.5 MG Diagnostic Test (Pha) 1 strip ACHS 03/08/24 22:00 03/09/24 21:31 1 STRIP Insulin Human Regular ACHS SC 03/08/24 22:00 03/09/24 21:32 6 UNITS Dextrose 50 ml UD PRN IV 03/08/24 19:00 Sodium Chloride 1,000 ml @ 60 mls/hr [id number] IV 03/08/24 19:00 Acetaminophen/ Hydrocodone Bitart 1 tab Q4HP PRN PO 03/08/24 19:00 03/10/24 01:36 1 TAB Ondansetron HCl 4 mg Q4HP PRN IV 03/08/24 19:00 03/10/24 01:42 4 MG Docusate Sodium 100 mg BIDPRN PRN PO 03/08/24 19:00 03/09/24 19:35 100 MG Acetaminophen 650 mg Q6HP PRN PO 03/08/24 19:00 Nitroglycerin 0.4 mg Q5MINP PRN SL 03/08/24 20:15 Morphine Sulfate 2 mg Q30M PRN IV 03/08/24 20:15 Famotidine 20 mg Q48H IV 03/08/24 22:00 03/08/24 22:25 20 MG Piperacillin Sod/ Tazobactam Sod 50 ml @ 12.5 mls/hr Q12HR IV 03/09/24 22:00 03/09/24 21:33 12.5 MLS/HR objective Gen: NAD HEENT: NC, AT Lungs: decreased breath sound lt lung base Cardiology: RRR, no murmur Abd: + PD catheter, exit site clear Ext: no edema laboratory and microbiology Laboratory Tests 03/09/24 05:57 Test 03/09/24 05:57 Range/Units Serum Glucose 305 H 74-106 mg/dL Assessment/Plan Assessment: ESRD on PD Acute hypoxic respiratory failure, she has improved with ultrafiltration, on room air at this time Atelectasis DM HTN Anemia of CKD Plan: Patient brought in her cycler, she is doing her on dialysis per her prescription. Good UF Avoid IVF Hb within desired range on empirical IV antibiotics Coreg 12.5 mg PO BID Plan discussed with: Patient KELIN BARROSO MD Mar 10, 2024 06:32
--- NOTE | 2024-03-10 09:48 | DVH ---
Procedure: CT CHEST WITHOUT CONTRAST Reason for study/Clinical History: Hypoxia. Comparison Study: None available at time of dictation. Exam Date: 03/10/2024 09:20 AM TECHNIQUE: Multidetector CT of the chest was performed from the lung apices to the upper abdomen with out the use of intravenous contract. Axial, coronal and sagittal multiplanar reformats were performed . Radiation Dose Information: CT Dose: CTDI volume is 16.01 mGy. Dose-length product is 536.48 mGy*cm The dose indicators for CT are the volume Computed Tomography (CT) Dose Index (CTDIvol) and the Dose Length Product (DLP), and are measured in units of mGy and mGy-cm, respectively. These indicators are not patient dose, but values generated from the CT scanner acquisition factors. The report includes radiation exposure data for exposures received during this examination. Radiation optimization: All CT scans at this facility use at least one of these dose optimization veda hniques: automated exposure control mA and/or kV adjustment per patient size (includes targeted exam s where dose is matched to clinical indication) or iterative reconstruction. FINDINGS Lungs: There is a nonspecific 1.6 cm nodule in the left lower lobe. There is mild scarring versus ate lectasis in the lower lungs. There is no focal lung consolidation. Heart/Vascular Structures: Normal heart size. No pericardial effusion. There are calcified atheroscle rotic changes in the thoracic aorta and coronary arteries. Lymph Nodes: No thoracic lymphadenopathy. Pleura: No pleural effusion or significant pneumothorax. Musculoskeletal: No acute osseous abnormality. Soft tissues: Unremarkable. Upper abdomen: Gallbladder is surgically absent. Remaining visualized solid abdominal viscera grossly appears unremarkable. IMPRESSION: Nonspecific 1.6 cm left lower lobe pulmonary nodule. Comparison with any available prior CT studies is recommended to evaluate stability. If none are available, a short-term follow-up study in 3 months is recommended. HS:Y
--- NOTE | 2024-03-10 12:20 | DVHPN2 ---
Progress Note - Dictate Date Seen: Mar 10, 2024 Medical Necessity Reason Pt with a Central, PICC or Fol: No vital signs Vital Sign Date Time Temp Pulse Resp B/P (MAP) Pulse Ox O2 Delivery O2 Flow Rate FiO2 03/10/24 11:07 68 118/78 03/10/24 10:00 95 Room Air* 0 21 03/10/24 09:38 16 03/10/24 08:48 98.5 98.5 Total Intake and Output 03/09/24 03/09/24 03/10/24 15:00 23:00 07:00 Intake Total 600 ml 440 ml Balance 600 ml 440 ml medications Current Medications Medications Dose Ordered Sig/Miguel A Route Start Time Stop Time Status Last Admin Dose Admin Aspirin 81 mg DAILY PO 03/09/24 10:00 03/10/24 10:08 81 MG Clonidine HCl 0.1 mg Q4HP PRN PO 03/08/24 19:00 Carvedilol 12.5 mg Q12HR PO 03/08/24 22:00 03/10/24 10:07 12.5 MG Levothyroxine Sodium 50 mcg QAM@0600 PO 03/09/24 06:00 03/10/24 06:51 50 MCG Albuterol 2.5 mg Q4HPRN PRN NEB 03/08/24 19:00 03/10/24 09:38 2.5 MG Diagnostic Test (Pha) 1 strip ACHS 03/08/24 22:00 03/10/24 11:51 1 STRIP Insulin Human Regular ACHS SC 03/08/24 22:00 03/10/24 11:53 8 UNITS Dextrose 50 ml UD PRN IV 03/08/24 19:00 Sodium Chloride 1,000 ml @ 60 mls/hr [id number] IV 03/08/24 19:00 03/10/24 04:20 60 MLS/HR Acetaminophen/ Hydrocodone Bitart 1 tab Q4HP PRN PO 03/08/24 19:00 03/10/24 01:36 1 TAB Ondansetron HCl 4 mg Q4HP PRN IV 03/08/24 19:00 03/10/24 01:42 4 MG Docusate Sodium 100 mg BIDPRN PRN PO 03/08/24 19:00 03/09/24 19:35 100 MG Acetaminophen 650 mg Q6HP PRN PO 03/08/24 19:00 Nitroglycerin 0.4 mg Q5MINP PRN SL 03/08/24 20:15 Morphine Sulfate 2 mg Q30M PRN IV 03/08/24 20:15 Famotidine 20 mg Q48H IV 03/08/24 22:00 03/08/24 22:25 20 MG Piperacillin Sod/ Tazobactam Sod 50 ml @ 12.5 mls/hr Q12HR IV 03/09/24 22:00 03/10/24 10:06 12.5 MLS/HR objective General Appearance: alert, no distress HEENT: EOMI, PERRLA, normal external inspect of ears, no icterus, no nasal drainage Neck: no carotid bruit, no jugular venous distention (JVD), no lymphadenopathy Chest: normal thorax Respiratory: clear to auscultation, normal air movement Cardiovascular: regular rate and rhythm, no diastolic murmur, no jugular venous distention (JVD), no rub, no systolic murmur Abdominal: soft, no hepatomegaly, no mass, no splenomegaly, no tenderness Genitourinary: grossly normal external Musculoskeletal: no joint tenderness, no swelling Extremities: normal pulses, no calf tenderness, no clubbing, no cyanosis, no edema Skin: no bruising, no jaundice, no rash Neurological: alert, No focal deficit laboratory and microbiology Laboratory Tests 03/09/24 05:57 Test 03/09/24 05:57 Range/Units Serum Glucose 305 H 74-106 mg/dL Problem List 1. Cough and Malaise Monitor, IV antibiotics 2. ESRD on peritoneal dialysis Monitor, nephrology consult 3. Lung nodule Monitor, CT of chest 4. Morbid obesity Monitor, DVT prophylaxis 5. DM 2 and hyperglycemia Monitor, insulin SS, diabetic diet 6. Hypothyroid Monitor, restart home medications, PPI Assessment/Plan Subjective: Patient is awake and alert. Objective: Patient was admitted for cough and malaise. Patient has end-stage renal disease on peritoneal dialysis. Patient was seen by nephrology. Patient was found to have a small lung nodule she was here 4 weeks ago for a lung infection. Patient also has diabetes and hypothyroidism. Plan: Continue antibiotics. Continue dialysis per nephrology. CT of the chest is pending. Continue insulin sliding scale. Possible DC in 1 to 2 days. Plan discussed with: Patient, FRANCI Jeffries NP Mar 10, 2024 12:20
--- NOTE | 2024-03-10 18:21 | DVHHP2 ---
Admitting Diagnosis: Admission date: 02/08/2024 Shortness of breath History of Present Illness Patient presents with a chief complaint of shortness of breath for the past 3 weeks. Patient also presents with associated cough and malaise. Per patient symptoms have began spontaneously about 3 weeks ago. Patient denies any contact with any sick contacts. Patient mentions that her cough is nonproductive, patient is satting at 98 on room air and speaking in complete sentences. Patient has no other modifying symptoms or factors at this time. While in the emergency department the patient was evaluated by the provider, As per provider: Labs, vital signs, and imagining monitored. Patient will be admitted for further evaluation and treatment. I discussed admission with the patient/family and is in agreement to treatment plan Patient Family History: Colon cancer G8 FATHER Diabetes mellitus G8 MOTHER FH: stomach cancer Hypertension G8 MOTHER Allergies: Coded Allergies: NO KNOWN ALLERGIES (Unverified , 03/08/24) Home Meds Reported Medications Icosapent Ethyl (Icosapent Ethyl) 1 Gm Cap, 2 CAP PO BIDWM for 30 Days, #10 03/10/24 Diclofenac Sodium (Topical) (Voltaren Arthritis Pain) 1 % Gel, 1 APPLIC TOP Q8HR PRN for PAIN for 30 Days, #100 APPLY TO AFFECTED AREA TOPICALLY EVERY 8 HOURS NEEDED FOR PAIN. 03/10/24 Lidocaine (Lidocaine) 5 % Pad, 1 PATCH TOP DAILY for 30 Days, #30 APPLY 1 PATCH TOPICALLY EVERYDAY 12 HOURS ON & 12 HOURS OFF. 03/10/24 Clonidine Hydrochloride (Clonidine Hcl) 0.1 Mg Tab, 1 TAB PO DAILY for 30 Days, #30 03/10/24 Insulin Aspart (Novolog Flexpen Relion) 100 Unit/Ml Inj, UNIT SC UD for 66 Days, #30 INJECT SUBCUTANEOUSLY DIRECTED PER SLIDING SCALE (MAX 45 UNITS PER DAY). 03/10/24 Pantoprazole Sodium Sesquihydr (Pantoprazole Sodium) 40 Mg Tab, 1 TAB PO DAILY for 90 Days, #90 03/10/24 Insulin Glargine (Lantus Solostar) 100 Unit/Ml Inj, 30 UNIT SC ACHS 03/09/24 Nifedipine (Nifedipine Er) 90 Mg Tab, 90 MG PO DAILY 03/09/24 Furosemide (Furosemide) 40 Mg Tab, 80 MG PO BIDD 03/09/24 Carvedilol (Carvedilol) 12.5 Mg Tab, 1 TAB PO BID for 30 Days, #60 03/09/24 Levothyroxine Sodium (Levothyroxine Sodium) 25 Mcg Tab, 75 MCG PO QAM, % 03/09/24 Hydrocodone-Acetaminophen (Hydrocodone/Acetaminophen 10-325 mg) 1 Tab Tab, 1 TAB PO Q8HR PRN for SEVERE PAIN for 30 Days, #75 03/09/24 Quetiapine Fumerate (QUETIAPINE FUMARATE) 400 Mg Tab, 400 MG PO at bedtime, MG 03/09/24 B-Complex W/ C & Folic Acid (Simran-Paty) Tab, 1 TAB PO DAILY for 30 Days, #30 03/09/24 Lisinopril (Lisinopril) 20 Mg Tab, 20 MG PO DAILY, MG 03/09/24 Ferric Citrate (Auryxia) 210 Mg Tab, 2 TAB PO BIDWM for 90 Days, #120 03/09/24 Clopidogrel Bisulfate (CLOPIDOGREL) 75 Mg Tab, 75 MG PO DAILY, MG 03/09/24 Atorvastatin Calcium (ATORVASTATIN CALCIUM) 20 Mg Tab, 20 MG PO DAILY, TAB 03/09/24 Calcitriol (Calcitriol) 0.25 Mcg Cap, 0.25 MCG PO DAILY, MCG 03/09/24 Metolazone (Metolazone) 5 Mg Tab, 1 TAB PO MWF for 30 Days, #15 TAKE 1 TABLET BY MOUTH 3 TIMES A WEEK ON FRIDAY, FRIDAY, AND FRIDAY. 03/09/24 Docusate Sodium (Sb Docusate Sodium) 100 Mg Cap, 100 MG PO BID, CAP 03/09/24 Discontinued Reported Medications Amlodipine Besylate (Amlodipine Besylate) 5 Mg Tab, 1 TAB PO DAILY for 90 Days, #90 03/10/24 Gabapentin (Gabapentin) 100 Mg Cap, 1 CAP PO BID for 30 Days, #60 03/10/24 Pantoprazole Sodium (PANTOPRAZOLE SODIUM) 40 Mg Inj, 40 MG IV, INJ 03/09/24 Current Medications Current Medications Medications (Trade) Dose Ordered Sig/Miguel A Route PRN Reason Start Time Stop Time Status Last Admin Piperacillin Sod/ Tazobactam Sod 50 ml @ 12.5 mls/hr Q12HR IV 03/09/24 22:00 03/10/24 10:06 Albuterol (Ventolin Medneb) 2.5 mg Q6HR NEB 03/10/24 18:00 Atorvastatin Calcium (Lipitor) 20 mg DAILY PO 03/11/24 10:00 UNV Calcitriol (Rocaltrol Capsule) 0.25 mcg DAILY PO 03/11/24 10:00 UNV Clopidogrel Bisulfate (Plavix) 75 mg DAILY PO 03/11/24 10:00 UNV Docusate Sodium (Colace Capsule) 100 mg BID PO 03/10/24 22:00 UNV Furosemide (Lasix Tablet) 80 mg BIDD PO 03/10/24 18:00 UNV Levothyroxine Sodium (Synthroid Tablet) 75 mcg QAM PO 03/11/24 07:00 UNV Patient Own Medication 1 tab DAILY PO 03/11/24 10:00 UNV Patient Own Medication 2 tab BIDWM PO 03/10/24 18:00 UNV Patient Own Medication 90 mg DAILY PO 03/11/24 10:00 UNV Patient Own Medication 400 mg at bedtime PO 03/10/24 16:45 UNV Review of Systems Constitutional: denies chills, denies fever, denies malaise Eyes: denies eye pain, denies vision change ENT: denies ear pain, denies headache, denies nasal congestion, denies painful swallowing, denies voice change Cardiovascular: denies chest pain, denies edema, denies orthopnea, denies palpitations, denies paroxysmal nocturnal dyspnea Respiratory: denies cough, denies shortness of breath Gastrointestinal: denies constipation, denies diarrhea, denies nausea, denies vomiting Genitourinary: denies dysuria, denies frequent urination, denies urethral discharge Musculoskeletal: denies back pain, denies joint pain, denies muscle pain Skin: denies bruising, denies itching, denies rash Neurological: denies focal weakness, denies headache, denies sensory changes Psychiatric: denies anxiety, denies depression Endocrine: denies polydipsia, denies polyuria Hematologic/Lymphatic: denies easy bleeding, denies easy bruising, denies enlarged lymph nodes Allergic/Immunologic: denies allergy, denies hives Vital Signs Vital Signs Date Time Temp Pulse Resp B/P (MAP) Pulse Ox O2 Delivery O2 Flow Rate FiO2 03/10/24 16:42 98.7 79 18 118/45 (69) 95 98.7 03/10/24 10:00 Room Air* 0 21 Physical Exam General Appearance: alert, no distress HEENT: EOMI, PERRLA, normal external inspect of ears, no icterus, no nasal drainage Neck: no carotid bruit, no jugular venous distention (JVD), no lymphadenopathy Chest: normal thorax Respiratory: clear to auscultation, normal air movement Cardiovascular: regular rate and rhythm, no diastolic murmur, no jugular venous distention (JVD), no rub, no systolic murmur Abdominal: soft, no hepatomegaly, no mass, no splenomegaly, no tenderness Genitourinary: grossly normal external Musculoskeletal: no joint tenderness, no swelling Extremities: normal pulses, no calf tenderness, no clubbing, no cyanosis, no edema Skin: no bruising, no jaundice, no rash Neurological: alert, No focal deficit Results Labs Test 03/10/24 11:37 03/09/24 14:10 03/09/24 13:17 03/09/24 05:57 Range/Units POC Glucose 307 H 70-106 mg/dl Influenza Type A Antigen Negative Negative Influenza Type B Antigen Negative Negative SARS-CoV-2 Antigen (Rapid) Negative NEGATIVE Erythrocyte Sedimentation Rate 96 H 0-20 mm/hr White Blood Count 11.3 H 4.4-10.8 10^3/uL Red Blood Count 3.57 L 4.0-5.20 10^6/uL Hemoglobin 11.1 L 12.2-16.2 g/dL Hematocrit 34.0 L 36.0-46.0 % Mean Corpuscular Volume 95.3 80.0-100.0 fL Mean Corpuscular Hemoglobin 31.2 28.0-32.0 pg Mean Corpuscular Hemoglobin Concent 32.7 32.0-36.0 g/dL Red Cell Distribution Width 14.8 H 11.8-14.3 % Platelet Count 218 140-450 10^3/uL Mean Platelet Volume 8.9 6.9-10.8 fL Neutrophils (%) (Auto) 71.6 37.0-80.0 % Lymphocytes (%) (Auto) 17.0 10.0-50.0 % Monocytes (%) (Auto) 7.6 0.0-12.0 % Eosinophils (%) (Auto) 3.5 0.0-7.0 % Basophils (%) (Auto) 0.3 0.0-2.0 % Neutrophils # (Auto) 8.1 1.6-8.6 10 ^3/uL Lymphocytes # (Auto) 1.9 0.4-5.4 10 ^3/uL Monocytes # (Auto) 0.9 0-1.3 10 ^3/uL Eosinophils # (Auto) 0.4 0-0.8 10 ^3/uL Basophils # (Auto) 0 0-0.2 10 ^3/uL Nucleated Red Blood Cells 0.0 % Sodium Level 138 136-145 mmol/L Potassium Level 3.5 3.5-5.1 mmol/L Chloride Level 98 98-107 mmol/L Carbon Dioxide Level 25 20-31 mmol/L Anion Gap 15 5-15 Blood Urea Nitrogen 53 H 9-23 mg/dL Creatinine 8.03 H 0.550-1.02 mg/dL Glomerular Filtration Rate Calc 5 >90 mL/min BUN/Creatinine Ratio 6.6 L 10.0-20.0 Serum Glucose 305 H 74-106 mg/dL Hemoglobin A1c 8.3 H <5.7 % A1C Calcium Level 9.6 8.7-10.4 mg/dL Total Bilirubin 0.2 0.2-1.0 mg/dL Aspartate Amino Transferase (AST) 13 13-40 U/L Alanine Aminotransferase (ALT) 11 7-40 U/L Alkaline Phosphatase 142 H 46-116 U/L C-Reactive Protein High Sensitivity 2.75 H <1.0 mg/dL Total Protein 7.5 5.7-8.2 g/dL Albumin 4.0 3.2-4.8 g/dL Test 03/08/24 16:10 03/08/24 15:22 Range/Units Prothrombin Time 11.5 9.3-11.8 sec Prothrombin Time INR 1.09 0.9-1.15 Activated Partial Thromboplast Time 26.5 24.5-34.5 SEC D-Dimer, Quantitative 0.69 H 0.0-0.49 mg/L FEU Magnesium Level 2.1 1.6-2.6 mg/dL Troponin I High Sensitivity 8 </=34 ng/L B-Type Natriuretic Peptide 63.99 0-100 pg/mL Thyroid Stimulating Hormone (TSH) 1.16 0.55-4.78 uIU/mL Urine Color Yellow Yellow Urine Clarity Turbid H Clear Urine pH 5.0 5.0-9.0 Urine Specific [place] 1.019 1.001-1.035 Urine Protein 1+ H Negative Urine Ketones Negative Negative Urine Blood Negative Negative /uL Urine Nitrite Negative Negative Urine Bilirubin Negative Negative Urine Urobilinogen Normal Negative mg/dL Urine Leukocyte Esterase Trace Negative /uL Urine RBC 1 0 - 4 /hpf Urine WBC 4 0 - 5 /hpf Urine Squamous Epithelial Cells Few <5 /hpf Urine Bacteria Few H None Seen /hpf Urine Hyaline Casts Few 0 - 2 /lpf Urine Glucose 1+ H Normal mg/dL Microbiology Date/Time Source Procedure Growth Status 03/09/24 13:17 Blood Blood Culture - Preliminary NO GROWTH AFTER 24 HOURS OF INCUBATION. Resulted Plan 1. Cough and Malaise Monitor, IV antibiotics 2. ESRD on peritoneal dialysis Monitor, nephrology consult 3. Lung nodule Monitor, CT of chest 4. Morbid obesity Monitor, DVT prophylaxis 5. DM 2 and hyperglycemia Monitor, insulin SS, diabetic diet 6. Hypothyroid Monitor, restart home medications, PPI Plan discussed with: Patient, Other FRANCI HOLBROOK NP Mar 10, 2024 18:21
[2024-03-10] MEDS: ALBUTEROL SULF 2.5 MG/0.5ML(0.5%) NEB SOLN NEB SCH (18:34)
[2024-03-10] MEDS: DOCUSATE SOD 100 MG CAP PO SCH (22:59)
[2024-03-10] MEDS: QUEtiapine FUMARATE 100 MG TAB PO SCH (23:00)
[2024-03-10] MEDS: FUROSEMIDE 40 MG TAB PO SCH (23:09)
[2024-03-11] VITALS (11 sets, daily range): BP systolic 94–138; BP diastolic 41–61; PULSE 68–81; RESP 16–20; TEMP 97–97.9; O2SAT 95–100
[2024-03-11] MEDS: LEVOTHYROXINE SODIUM 25 MCG TAB PO SCH (06:39)
[2024-03-11] MEDS: B-COMPLEX W/ C & FOLIC ACID(NEPHROVITE TAB) PO SCH (10:07)
[2024-03-11] MEDS: NIFEdipine ER 30 MG TAB PO SCH (10:07)
[2024-03-11] MEDS: CLOPIDOGREL BISULFATE 75 MG TAB PO SCH (10:08)
[2024-03-11] MEDS: CALCITRIOL 0.25 MCG CAP PO SCH (10:08)
[2024-03-11] MEDS: ATORVASTATIN 20 MG TAB PO SCH (10:16)
--- NOTE | 2024-03-11 13:04 | DVHDS2 ---
Discharge Summary Date of Admission Mar 08, 2024 at 20:06 Date of Discharge: Mar 11, 2024 Labs/Diagnostic Data: Laboratory Results Test 03/11/24 11:23 03/09/24 14:10 03/09/24 13:17 03/09/24 05:57 POC Glucose 318 mg/dl (70-106) Influenza Type A Antigen Negative (Negative) Influenza Type B Antigen Negative (Negative) SARS-CoV-2 Antigen (Rapid) Negative (NEGATIVE) Erythrocyte Sedimentation Rate 96 mm/hr (0-20) White Blood Count 11.3 10^3/uL (4.4-10.8) Red Blood Count 3.57 10^6/uL (4.0-5.20) Hemoglobin 11.1 g/dL (12.2-16.2) Hematocrit 34.0 % (36.0-46.0) Mean Corpuscular Volume 95.3 fL (80.0-100.0) Mean Corpuscular Hemoglobin 31.2 pg (28.0-32.0) Mean Corpuscular Hemoglobin Concent 32.7 g/dL (32.0-36.0) Red Cell Distribution Width 14.8 % (11.8-14.3) Platelet Count 218 10^3/uL (140-450) Mean Platelet Volume 8.9 fL (6.9-10.8) Neutrophils (%) (Auto) 71.6 % (37.0-80.0) Lymphocytes (%) (Auto) 17.0 % (10.0-50.0) Monocytes (%) (Auto) 7.6 % (0.0-12.0) Eosinophils (%) (Auto) 3.5 % (0.0-7.0) Basophils (%) (Auto) 0.3 % (0.0-2.0) Neutrophils # (Auto) 8.1 10 ^3/uL (1.6-8.6) Lymphocytes # (Auto) 1.9 10 ^3/uL (0.4-5.4) Monocytes # (Auto) 0.9 10 ^3/uL (0-1.3) Eosinophils # (Auto) 0.4 10 ^3/uL (0-0.8) Basophils # (Auto) 0 10 ^3/uL (0-0.2) Nucleated Red Blood Cells 0.0 % Sodium Level 138 mmol/L (136-145) Potassium Level 3.5 mmol/L (3.5-5.1) Chloride Level 98 mmol/L (98-107) Carbon Dioxide Level 25 mmol/L (20-31) Anion Gap 15 (5-15) Blood Urea Nitrogen 53 mg/dL (9-23) Creatinine 8.03 mg/dL (0.550-1.02) Glomerular Filtration Rate Calc 5 mL/min (>90) BUN/Creatinine Ratio 6.6 (10.0-20.0) Serum Glucose 305 mg/dL (74-106) Hemoglobin A1c 8.3 % A1C (<5.7) Calcium Level 9.6 mg/dL (8.7-10.4) Total Bilirubin 0.2 mg/dL (0.2-1.0) Aspartate Amino Transferase (AST) 13 U/L (13-40) Alanine Aminotransferase (ALT) 11 U/L (7-40) Alkaline Phosphatase 142 U/L (46-116) C-Reactive Protein High Sensitivity 2.75 mg/dL (<1.0) Total Protein 7.5 g/dL (5.7-8.2) Albumin 4.0 g/dL (3.2-4.8) Test 03/08/24 16:10 03/08/24 15:22 Prothrombin Time 11.5 sec (9.3-11.8) Prothrombin Time INR 1.09 (0.9-1.15) Activated Partial Thromboplast Time 26.5 SEC (24.5-34.5) D-Dimer, Quantitative 0.69 mg/L FEU (0.0-0.49) Magnesium Level 2.1 mg/dL (1.6-2.6) Troponin I High Sensitivity 8 ng/L (</=34) B-Type Natriuretic Peptide 63.99 pg/mL (0-100) Thyroid Stimulating Hormone (TSH) 1.16 uIU/mL (0.55-4.78) Urine Color Yellow (Yellow) Urine Clarity Turbid (Clear) Urine pH 5.0 (5.0-9.0) Urine Specific [place] 1.019 (1.001-1.035) Urine Protein 1+ (Negative) Urine Ketones Negative (Negative) Urine Blood Negative /uL (Negative) Urine Nitrite Negative (Negative) Urine Bilirubin Negative (Negative) Urine Urobilinogen Normal mg/dL (Negative) Urine Leukocyte Esterase Trace /uL (Negative) Urine RBC 1 /hpf (0 - 4) Urine WBC 4 /hpf (0 - 5) Urine Squamous Epithelial Cells Few /hpf (<5) Urine Bacteria Few /hpf (None Seen) Urine Hyaline Casts Few /lpf (0 - 2) Urine Glucose 1+ mg/dL (Normal) Other Laboratory Tests 03/09/24 05:57 Brief Hx & Hospital Course: Patient was admitted for malaise and cough. CT imaging did show a small nodule. Repeat imaging is recommended in 3 months. Patient is currently 100% SpO2 on room air. Patient also has end-stage renal disease on peritoneal dialysis. Patient will follow up with her PCP in 1 week. Patient will follow up CT chest in 3 months. The patient received proper medical treatment and medications. Vital signs, Imaging and Laboratory Work was monitored. All consults recommendations were followed as provided. There were no complaints or new complaints upon discharge, all questions and concerns were answered. Patient was advised to return to the ER or call 911 if any headaches, dizziness, shortness of breath, chest pain, bleeding, fevers, or worsening of medical condition. Patient/Family was counseled about treatment plan, medications, possible side effects, patientverbalized understanding. All questions were answered to the best of my ability. The patient symptoms improved and they are okay to be DC. Condition at Discharge: Stable Final Diagnosis/Problems List Cough malaise ESRD on peritoneal dialysis Lung nodule Morbid obesity DM 2 Hypothyroid Discharge Disposition: Home Discharge Instruct/Medications Diet: Cardiac 2g Na,low cholest, Renal Activity: No Restrictions, As Tolerated Follow Up/Referral: pcp 1 week Discharge Statement: "Patient was advised to return to the ER or call 911 if any headaches, dizziness, shortness of breath, chest pain, abdominal pain, bleeding, fevers, or worsening of medical condition. Patient was counseled about treatment plan, medications, possible side effects, patientverbalized understanding. All questions were answered to the best of my ability. This discharge took greater then 30 minutes in planning, reviewing documentation, counseling the patient, and discussing with other team members." ASSESSMENT ASSESSMENT Assessment Cough , malaise ESRD on peritoneal dialysis FRANCI HOLBROOK NP Mar 11, 2024 13:04
--- NOTE | 2024-03-11 13:43 | DVHPN2 ---
Progress Note - Dictate Date Seen: Mar 11, 2024 Medical Necessity Reason Pt with a Central, PICC or Fol: No Subjective no new symptoms vital signs Vital Sign Date Time Temp Pulse Resp B/P (MAP) Pulse Ox O2 Delivery O2 Flow Rate FiO2 03/11/24 13:00 97.7 71 18 118/61 (80) 96 97.7 03/11/24 12:14 Room Air* 0 21 Total Intake and Output 03/10/24 03/10/24 03/11/24 15:00 23:00 07:00 Intake Total 600 ml 600 ml Output Total 500 ml Balance 100 ml 600 ml medications Current Medications Medications Dose Ordered Sig/Miguel A Route Start Time Stop Time Status Last Admin Dose Admin Aspirin 81 mg DAILY PO 03/09/24 10:00 03/11/24 10:09 81 MG Clonidine HCl 0.1 mg Q4HP PRN PO 03/08/24 19:00 Carvedilol 12.5 mg Q12HR PO 03/08/24 22:00 03/11/24 10:07 12.5 MG Levothyroxine Sodium 50 mcg QAM@0600 PO 03/09/24 06:00 03/11/24 06:38 50 MCG Albuterol 2.5 mg Q4HPRN PRN NEB 03/08/24 19:00 03/10/24 13:54 2.5 MG Diagnostic Test (Pha) 1 strip ACHS 03/08/24 22:00 03/11/24 11:34 1 STRIP Insulin Human Regular ACHS SC 03/08/24 22:00 03/11/24 11:35 8 UNITS Dextrose 50 ml UD PRN IV 03/08/24 19:00 Sodium Chloride 1,000 ml @ 60 mls/hr [id number] IV 03/08/24 19:00 03/10/24 04:20 60 MLS/HR Acetaminophen/ Hydrocodone Bitart 1 tab Q4HP PRN PO 03/08/24 19:00 03/11/24 10:05 1 TAB Ondansetron HCl 4 mg Q4HP PRN IV 03/08/24 19:00 03/10/24 23:53 4 MG Docusate Sodium 100 mg BIDPRN PRN PO 03/08/24 19:00 03/09/24 19:35 100 MG Acetaminophen 650 mg Q6HP PRN PO 03/08/24 19:00 Nitroglycerin 0.4 mg Q5MINP PRN SL 03/08/24 20:15 Morphine Sulfate 2 mg Q30M PRN IV 03/08/24 20:15 Famotidine 20 mg Q48H IV 03/08/24 22:00 03/10/24 23:05 20 MG Piperacillin Sod/ Tazobactam Sod 50 ml @ 12.5 mls/hr Q12HR IV 03/09/24 22:00 03/11/24 10:05 12.5 MLS/HR Albuterol 2.5 mg Q6HR NEB 03/10/24 18:00 03/11/24 12:14 2.5 MG Atorvastatin Calcium 20 mg DAILY PO 03/11/24 10:00 03/11/24 10:16 20 MG Calcitriol 0.25 mcg DAILY PO 03/11/24 10:00 03/11/24 10:08 0.25 MCG Clopidogrel Bisulfate 75 mg DAILY PO 03/11/24 10:00 03/11/24 10:08 75 MG Docusate Sodium 100 mg BID PO 03/10/24 22:00 03/11/24 10:08 100 MG Furosemide 80 mg BIDD PO 03/10/24 18:00 03/11/24 06:42 80 MG Levothyroxine Sodium 75 mcg QAM PO 03/11/24 07:00 03/11/24 06:39 75 MCG Multivit/Ca Carb/ B Cmplx/FA/Prenat 1 tab DAILY PO 03/11/24 10:00 03/11/24 10:07 1 TAB Patient Own Medication 2 tab BIDWM PO 03/10/24 18:00 Nifedipine 90 mg DAILY PO 03/11/24 10:00 03/11/24 10:07 90 MG Quetiapine Fumarate 400 mg HS PO 03/10/24 22:07 03/10/24 23:00 400 MG objective Gen: NAD HEENT: NC, AT Lungs: decreased breath sound lt lung base Cardiology: RRR, no murmur Abd: + PD catheter, exit site clear Ext: no edema laboratory and microbiology Laboratory Tests 03/09/24 05:57 Test 03/09/24 05:57 Range/Units Serum Glucose 305 H 74-106 mg/dL Assessment/Plan Assessment: ESRD on PD Acute hypoxic respiratory failure, she has improved with ultrafiltration, on room air at this time Atelectasis DM HTN Anemia of CKD Plan: Patient has brought in her PD cycler, she is doing her on dialysis per her prescription. Good UF Hb within desired range on empirical IV antibiotics Coreg 12.5 mg PO BID Plan discussed with: Patient KELIN BARROSO MD Mar 11, 2024 13:43
--- NOTE | 2024-03-11 15:08 | DVH ---
EXAM: NM PERFUSION ONLY HISTORY: None COMPARISON: None TECHNIQUE: Following the administration of the perfusion agent, standard projections of the lungs we re acquired. Findings: Perfusion images demonstrate homogeneous distribution of radiotracer throughout both lungs. No periph eral wedge-shaped moderate or large subsegmental or segmental perfusion defects to suggest acute pul monary embolism. Impression: 1. Low probability for pulmonary embolism.
== END 2024-03-11 16:55 | disposition home or self-care (01) | DRG 682 ==
LOC: ER 14:30 → TELE 20:06 → TELE-WESTW 23:30
PROVIDERS: ADMIT Nurse Practitioner Family; ATTEND Nurse Practitioner Acute Care
DX: I12.0 Hypertensive chronic kidney disease with stage 5 chronic kidney disease or end stage renal disease (principal); N18.6 End stage renal disease; J98.11 Atelectasis; Z68.41 Body mass index [BMI] 40.0-44.9, adult; R53.81 Other malaise; R91.1 Solitary pulmonary nodule; R05.9 Cough, unspecified; D72.829 Elevated white blood cell count, unspecified; E11.22 Type 2 diabetes mellitus with diabetic chronic kidney disease; D63.1 Anemia in chronic kidney disease; E11.65 Type 2 diabetes mellitus with hyperglycemia; F31.9 Bipolar disorder, unspecified; E03.9 Hypothyroidism, unspecified; E66.01 Morbid (severe) obesity due to excess calories; Z99.2 Dependence on renal dialysis; Z83.3 Family history of diabetes mellitus; Z82.49 Family history of ischemic heart disease and other diseases of the circulatory system; Z80.0 Family history of malignant neoplasm of digestive organs; Z79.4 Long term (current) use of insulin
CPT/HCPCS: 36415; 71046; 71250; 78579; 80053; 81001; 82962; 83036; 83735; 83880; 84443; 84484; 85025; 85379; 85610; 85652; 85730; 86141; 87040; 87086; 87426; 87804; 93005; 93970; 94640; G0378; J1815; J2405; J2543; J3490